=== PATIENT | female | born 2000 | race Caucasian/White ===

== ENCOUNTER → 2020-11-14 08:10 | Outpatient (CLI) | payer OTHER, SELFPAY ==
[2020-11-14 10:19] LABS: Cholesterol 216 mg/dL (200); Glucose 88 mg/dL (74-106); High Density Lipoprotein 70 mg/dL; Triglycerides 61 mg/dL; Very Low Density Lipoprotein 12 mg/dL (5-40)
== END ==
PROVIDERS: PCP Pediatrics; Referring Provider Psychiatry & Neurology Psychiatry; Visit Provider Psychiatry & Neurology Psychiatry
DX: R63.5 Abnormal weight gain (principal); Z79.899 Other long term (current) drug therapy
CPT/HCPCS: 36415; 80061; 82947; 83036

== ENCOUNTER 2023-02-28 08:24 | Outpatient (RCR) | payer BC, SELFPAY | END 2023-03-11 23:59 | LOC: NS 08:24 | PROVIDERS: PCP Pediatrics; Referring Provider Psychiatry & Neurology Psychiatry; Visit Provider Psychiatry & Neurology Psychiatry | DX: Z71.3 Dietary counseling and surveillance (principal); F40.8 Other phobic anxiety disorders; F34.1 Dysthymic disorder | CPT/HCPCS: 97802 ==